=== PATIENT | female | born 1980 | race Two or more races ===

== ENCOUNTER 2024-04-16 06:41 | Observation (INO) ==
--- NOTE | 2024-04-14 10:46 | Anesthesiology Consultation ---
Date of Service April 14, 2024 Assessment & Plan (1) Encounter for pre-operative examination: - Check test DOS - ENT visit (02/26/24): "Goiter.. Discussed the procedure and risks of total thyroidectomy: temporary or permanent injury to the RLN, temporary or permanent hypocalcemia, unsightly scar, infection, hematoma and need for further surgery (All very low risks). I don't typically use preoperative KI therapy and have seen no difference when used. Patient is Euthyroid. Patient likely would need overnight observation." - Language barrier: subscription agent needed. OR made aware. - Per PAT certified legal secretary specialist, unable to obtain PAT RN phone interview prior to surgery. Chart completed with available records. Will need to review with patient DOS. Chart Review Chart Review: Acceptable Risk for Surgery (pending evaluation DOS) and Patient NOT seen in Pre Admission Testing History Surgery Operation Date: 04/16/24 09:15 Proposed Procedures p Total Thyroidectomy with Repair of the Face, Chin, Mouth and Neck - Malvin Rowan MD Height/Weight Height: 5 ft 5 in Weight: 80.7 kg Allergies Allergy/AdvReac Type Severity Reaction Status Date / Time pollen extracts Allergy Verified 02/26/24 09:52 Medications Home Medications Medication Instructions Recorded Confirmed Last Taken losartan 50 mg tablet 50 mg PO BID 05/31/22 02/26/24 Unknown hydrochlorothiazide 25 mg tablet 25 mg PO DAILY 03/27/23 02/26/24 Unknown methimazole 5 mg tablet 10 mg (2 x 5 mg) PO DAILY 90 days 03/27/23 02/26/24 Unknown #180 tabs Past Medical History Medical History Goiter History of gastroesophageal reflux (GERD) Per records HTN (hypertension) Per records Hyperthyroidism Past Family History Family History Grandmother (Paternal) Hyperthyroidism Grandmother (Maternal) Hypertension Past Surgical History Surgical History History of Social History Smoking Status: Never smoker Hx Alcohol Use: No Testing Laboratory Results 12/18/23 TSH 2.143 Free T4 0.76 Free T3 3.77 Other Testing Thyroid ultrasound Date: 02/28/23 FINDINGS: The right thyroid lobe measures 5.2 x 2.5 x 3.1 cm and the left lobe measures 5.5 x 2.6 x 2.9 cm. The gland is mildly enlarged. The gland is heterogeneous. No thyroid nodules are identified. Isthmus measures 1 cm in AP dimension. The adjacent soft tissues are unremarkable. IMPRESSION: 1. Heterogeneous, mildly enlarged thyroid gland. 2. No thyroid nodules.
[2024-04-16] MEDS: LACTATED RINGER'S 1,000 ML IV SCH (07:43)
[2024-04-16] MEDS ORDERED: REMIFENTANIL HCL 1 MG VIAL IV ONE ×2 (07:46→10:27)
[2024-04-16] MEDS ORDERED: MIDAZOLAM HCL 1 MG/ML 2ML VIAL ONE (07:58)
[2024-04-16] MEDS ORDERED: SUCCINYLCHOLINE CHLORIDE 20 MG/ML 10 ML VIAL IV ONE (07:58)
[2024-04-16] MEDS ORDERED: ONDANSETRON INJ 2 MG/ML 2 ML VIAL ONE (07:58)
[2024-04-16] MEDS ORDERED: PROPOFOL IV EMULSION 10 MG/ML 20 ML VIAL IV ONE ×2 (07:58→09:42)
[2024-04-16] MEDS ORDERED: fentaNYL citrate PF 100 MCG/2 ML VIAL ONE ×2 (07:58→11:28)
[2024-04-16] MEDS ORDERED: DEXAMETHASONE SOD INJ 4 MG/ML VIAL ONE (07:58)
[2024-04-16] MEDS ORDERED: LIDOCAINE 2% 2 ML VIAL/AMP(20MG/ML) INFIL ONE ×2 (07:58→07:59)
[2024-04-16] MEDS ORDERED: ROCURONIUM BROMIDE 10 MG/ML 5 ML VIAL IV ONE (07:58)
[2024-04-16] MEDS ORDERED: DexMEDEtomidine HCL IV 100 MCG/ML VIAL IV ONE (08:01)
[2024-04-16] MEDS ORDERED: DROPERIDOL 5 MG/2 ML VIAL ONE (08:13)
[2024-04-16] MEDS ORDERED: ACETAMINOPHEN 1000 MG/100 ML IV IV ONE (08:24)
[2024-04-16] MEDS ORDERED: ATROPINE SULFATE 0.1 MG/ML 10ML SYR IV PRN (08:37)
[2024-04-16] MEDS ORDERED: HYDROmorphone INJ 1 MG/ML SYRINGE IV PRN (08:37)
[2024-04-16] MEDS ORDERED: ONDANSETRON INJ 2 MG/ML 2 ML VIAL IV PRN (08:37)
[2024-04-16] MEDS ORDERED: ePHEDrine sulfate 50 MG/ML AMP IV PRN (08:37)
[2024-04-16] MEDS ORDERED: PROMETHAZINE HCL 6.25 MG in SODIUM CHLORIDE 0.9% 50 ML IV PRN (08:37)
--- NOTE | 2024-04-16 09:01 | History & Physical Report ---
Date of Service April 16, 2024 Assessment & Plan (1) Goiter: Plan: Hyperthyroidism recommended by endocrinology for total thryroidectomy. We discussed the risks of recurrent laryngeal nerve injury and hypocalcemia postoperatively. The risks of bleeding, infection, perforation and/or need for further surgery discussed. Patient agreed. Plan for overnight observation and morning discharge. History of Present Illness Chief Complaint: hyperthyroidism. Primary Care Provider: [facility] [place] [facility] 43 year old with hyperthyroidism recommended for total thyroidectomy by Endocrinology. She is Euthyrdoi. Allergies Allergy/AdvReac Type Severity Reaction Status Date / Time pollen extracts Allergy Verified 04/16/24 07:23 Home Medications Medication Instructions Recorded Confirmed Type losartan 50 mg tablet 50 mg PO BID 05/31/22 04/16/24 History hydrochlorothiazide 25 mg tablet 25 mg PO DAILY 03/27/23 04/16/24 History methimazole 5 mg tablet 10 mg (2 x 5 mg) PO DAILY 90 days 03/27/23 04/16/24 Rx #180 tabs hydrocodone 5 mg-acetaminophen 325 1 tab PO Q6H PRN pain 6 days #24 04/15/24 04/16/24 Rx mg tablet tabs Past Med/Surg History Problem List (Updated 04/16/24 @ 09:05 by Malvin Rowan MD) Hyperthyroidism Encounter for pre-operative examination Medical History Goiter History of gastroesophageal reflux (GERD) Per records HTN (hypertension) Per records Hyperthyroidism Surgical History History of Family History Grandmother (Paternal) Hyperthyroidism Grandmother (Maternal) Hypertension Social History (Updated 05/31/22 @ 12:16 by Kaylyn Mcdaniel) Smoking Status: Never smoker Hx Alcohol Use: No Review of Systems Review of Systems: No pertinent ROS positives unless otherwise mentioned in the HPI Physical Exam Physical Exam: Ears: Normal pinna Nose: No external deformity Neck: trachea midline, GOITER Neuro: Alert and oriented, Moves all 4 extremities, Symmetric and normal facial nerve function Derm: No lesions noted on face or neck Cardiovascular: No JVD Results & Data Results & Data Vital Signs (Past 12 Hours) Vital Signs Temp Pulse Resp BP Pulse Ox O2 Del Method 04/16/24 07:25 36.5 C 85 20 138/99 100 Room Air PG Care Time/CCT Total # of Minutes Spent Total Time Spent with Patient: Total time spent is greater than 50% in coordination of care (as documented) at patient's floor/unit and/or counseling patient: Coding Level of Care Code 08359 INT INP/OBS CARE 1/40MIN Diagnoses Goiter E04.9
[2024-04-16] MEDS ORDERED: PHENYLEPHRINE 100MCG/ML 5ML SYR ONE (09:58)
[2024-04-16] MEDS: LIDOCAINE 1%/EPINEPHRINE 1:100,000 50 ML VIAL ONE (11:13)
--- NOTE | 2024-04-16 11:37 | Post Operative Brief Note ---
PG Immediate Post Op with CF Date of Surgery April 16, 2024 Pre & Post Diagnosis Operation Date: 04/16/24 09:15 Pre-Op Diagnosis: Goiter, Hyperthyroidism Post-Op Diagnosis: Goiter, Hyperthyroidism I identified the patient and participated in the time-out.: Yes Procedure Operation Date: 04/16/24 09:15 Actual Procedures p Total Thyroidectomy with use of NIMS(Not Applicable) - Malvin Rowan MD Surgeon Malvin Rowan MD Development And Housing Director none Estimated Blood Loss 55 Findings Consistent with Post-Op Diagnosis Multi nodular goiter. Both recurrent laryngeal nerves found and preserved. Specimens Specimen Description: A. Total thyroid stitch left superior pole
[2024-04-16] MEDS: fentaNYL citrate PF 100 MCG/2 ML VIAL IV PRN (12:00)
--- NOTE | 2024-04-16 12:50 | Anesthesiology Progress Note ---
Date of Service April 16, 2024 Anesthesia Post Procedure Vital Signs Vital Signs: Temp Pulse Resp BP Pulse Ox O2 Del Method O2 Flow Rate 04/16/24 12:30 19 L 20 99/64 L 100 Oxymask 2 04/16/24 12:20 71 20 106/65 100 Oxymask 4 04/16/24 12:10 74 19 102/60 100 Oxymask 4 04/16/24 12:00 74 19 104/69 100 Oxymask 6 04/16/24 11:50 79 12 103/67 100 Oxymask 8 04/16/24 11:44 36 C L 78 19 113/76 100 Oxymask 8 04/16/24 07:25 36.5 C 85 20 138/99 100 Room Air Pain Intensity Anterior Neck: Pain Intensity: 6 Notes Mental Status: alert / awake / arousable Patient Amnestic to Procedure: Yes Nausea / Vomiting: adequately controlled Pain: adequately controlled Airway Patency, RR, SpO2: stable & adequate BP & HR: stable & adequate Hydration State: stable & adequate Notes: Voice clear no issues
[2024-04-16] MEDS: FAMOTIDINE/PF 20 MG/2 ML VIAL IV ONE (13:58)
[2024-04-16] MEDS: oxyCODONE/ACETAMINOPHEN 5mg/325mg TAB PO PRN (14:07)
[2024-04-16] MEDS: ONDANSETRON INJ 2 MG/ML 2 ML VIAL IV PRN (14:11)
[2024-04-16] MEDS: CALCIUM 600MG + VIT D 400 IU TAB PO SCH (21:21)
--- NOTE | 2024-04-17 07:21 | Discharge Summary ---
Date of Service April 17, 2024 Admission HPI Per Admitting Provider 43 year old with hyperthyroidism recommended for total thyroidectomy by Endocrinology. She is Euthyrdoi. Discharge Data Procedures Performed Operation Date: 04/16/24 09:15 Actual Procedures p Total Thyroidectomy with use of NIMS(Not Applicable) - Malvin Rowan MD Hospital Course (1) Goiter: Hyperthyroidism recommended by endocrinology for total thryroidectomy. We discussed the risks of recurrent laryngeal nerve injury and hypocalcemia pos toperatively. The risks of bleeding, infection, perforation and/or need for further surgery discussed. Patient agreed. Plan for overnight observation and morning discharge. Patient had no issues overnight. Her pain was well controlled, her voice was normal, she tolerated PO and her calcium increased overnight. Plan Recommend discharge on oral calcium and levothyroxine. Follow up with ENT and endocrine planned.
--- NOTE | 2024-04-17 07:35 | Operative Report ---
PG Post Operative Report Pre & Post Diagnosis Operation Date: 04/16/24 09:15 Pre-Op Diagnosis: Goiter, Hyperthyroidism Post-Op Diagnosis: Goiter, Hyperthyroidism I identified the patient and participated in the time-out.: Yes Procedure Operation Date: 04/16/24 09:15 Actual Procedures p Total Thyroidectomy with use of NIMS(Not Applicable) - Malvin Rowan MD Surgeon Malvin Rowan MD Lube Technician none Estimated Blood Loss 55 Findings Consistent with Post-Op Diagnosis Specimens Total thyroid stitch in superior left pole. Description of Procedure The patient was met in the pre-operative holding area where operative consent and medical history were updated. The patient was taken back to the operating room and placed on the table in supine position. General endotracheal anesthesia was induced with a NIMs tube and the NIMs device was checked for function. The patient was prepped and draped in the normal sterile fashion.The 5 cm skin incision was injected with 2 mLs of 1% Lidocaine with 1:100,000 epinephrine.Incision was carried sharply with a #15 blade through the skin and subcutaneous tissue. The platysma was divided with the Bovie electrocautery at a setting of 15. The strap muscles were divided in a vertical fashion in the midline. A self-retraining clamp was placed. The thyroid gland was readily visible and palpable at this point. Blunt dissection with the Kitner and then spreading with the clamp freed the entire superficial surface of the gland. An Army-[place] was placed at the superior pole and superior pole attachments were developed with the right angle and removed with the bipolar at a setting of 15. The inferior pole was freed in the same fashion. Due to the size of the gland and how hard the gland was with multiple nodues, I enlarged the incision by 1 cm to be able to roll the entire lobe out of the wound. An Rosa clamp was placed on the gland and it was rotated out of the incision. The tubercle was identified and careful blunt dissection was used to find the recurrent laryngeal nerve. This was stimulated to ensure its location. Remaining thyroid attachments were then divided using the bipolar and scissors. The opposite side was done in exactly the same fashion with the same findings. The entire gland was passed off for permanent specimen with a stitch placed in the superior pole. The area was then irrigated with 400 mLs of normal sterile saline. Areas of bleeding were cauterized with the bipolar. The incision was closed in layers with 3-0 and then 4-0 Vicryl interrupted sutures. Approximately 8-10 of each. A final layer of Dermabond was applied. The patient was passed back to anesthesia, awakened, extubated and taken to the recovery room in stable condition. The patients voice was checked in the recovery area and noted to be normal and strong. I attest to the content of the Intraoperative Record and any orders documented therein. Any exceptions are noted below.
== END 2024-04-17 11:24 | disposition home or self-care (01) ==
LOC: ASU 06:41 → 3E 06:41